=== PATIENT | female | born 2000 | race Two or more races ===

== ENCOUNTER 2022-10-19 10:59 | Emergency (ER) | payer OTHER ==
[~2022-10-19] VITALS: Ht 147.3 cm; Wt 49.9 kg
[2022-10-19] MEDS ORDERED: KETO10TA2 PO (15:15)
[2022-10-19] MEDS ORDERED: NORFLEX100MG PO (15:15)
== END 2022-10-19 15:25 | disposition home or self-care (01) ==
LOC: ER 10:59
DX: S39.92XA Unspecified injury of lower back, initial encounter (principal); W10.9XXA Fall (on) (from) unspecified stairs and steps, initial encounter; Y93.9 Activity, unspecified; S29.9XXA Unspecified injury of thorax, initial encounter; Z88.0 Allergy status to penicillin; Y92.019 Unspecified place in single-family (private) house as the place of occurrence of the external cause

== ENCOUNTER 2023-06-09 17:35 | Emergency (ER) | payer OTHER ==
[~2023-06-09] VITALS: Ht 149.9 cm; Wt 44.5 kg
[~2023-06-09 17:35] MED LIST: KETO10TA2 PO; NORFLEX100MG PO
== END 2023-06-09 18:45 | disposition home or self-care (01) ==
LOC: ER 17:35
DX: F41.8 Other specified anxiety disorders (principal); Z88.0 Allergy status to penicillin